=== PATIENT | female | born 1960 | race Caucasian/White ===

== ENCOUNTER 2016-09-12 17:10 | Emergency (ER) | payer OTHER, BC ==
[~2016-09-12] VITALS: Ht 162.6 cm; Wt 68.2 kg
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
--- NOTE | ~2016-09-12 | EKG ---
PATIENT: CHERRI SÁNCHEZ UNIT #: [id number] Ventricular Rate: 70 BPM Atrial Rate: 70 BPM P-R Interval: 148 ms QRS Duration: 76 ms Q-T Interval: 384 ms QTC Calculation(Bezet): 414 ms P [place]: 35 degrees Calculated T [place]: 25 degrees Diagnosis Line: Normal sinus rhythm Diagnosis Line: Normal ECG Diagnosis Line: When compared with ECG of 22-OCT-2013 12:47, Diagnosis Line: No significant change was found Diagnosis Line: Confirmed by ALECIA LYON MD ([id number]) on 09/14/2016 Diagnosis Line: 11:31:13 PM INTERPRETING MD: SONALI PENA
[~2016-09-12 17:10] MED LIST: B-COMPLEX-VITA1 EACH PO; CEROVITE SENIO1 EACH PO; CHANTIX PO; COLACE PO; FISH OIL 1,0001 CA2 PO; GLUCOSAMINE CH1 EAC5 PO; HYDROCODON-ACE1 EAC9 PO; KEFLEX PO; LEXAPRO20 MG PO; MULTI VITAMIN1 EACH PO; OSTEO BI-FLEX1 EAC1 PO; PANTOPRAZOLE SO20 MG PO; VICODIN 5/500 T1 TAB PO; VITAMIN B12-FO1 EACH PO; ZOLOFT50 MG PO
[2016-09-12 20:00] LABS: URINE SOURCE CLEAN CATCH
[2016-09-12 20:04] LABS: BASOPHIL% 0.3 % (0-2.5); DIFF IND NO; EOSINOPHIL% 0.3 % (0.0-7.0); HEMATOCRIT 37.7 % (35.0-45.0); HEMOGLOBIN 12.7 gm/dL (12.0-16.0); LYMPHOCYTE# 1.2 X10e3 (1.0-3.5); LYMPHOCYTE% 12.4 % (17.0-45.0); MEAN CELL VOLUME 84.7 FL (83-96); MEAN CORPUSCULAR HEMOGLOBIN 28.5 PG (28-34); MEAN CORPUSCULAR HGB CONC 33.6 g/dL (30-36); MEAN PLATELET VOLUME 7.5 FL (6.5-11.5); MONOCYTE# 0.5 X10e3 (0-1.0); MONOCYTE% 5.5 % (3.0-12.0); NEUTROPHIL# 7.7 X10e3 (1.5-7.1); NEUTROPHIL% 81.5 % (40-75); PLATELET COUNT 204 X10e3 (140-420); RED BLOOD COUNT 4.46 X10e (3.90-5.30); RED CELL DISTRIBUTION WIDTH 13.6 % (11.0-15.5); WHITE BLOOD COUNT 9.4 X10e3 (4.0-10.5)
[2016-09-12 20:06] LABS: URINE APPEARANCE CLEAR; URINE BILIRUBIN NEG (NEG); URINE BLOOD NEG (NEG); URINE COLOR YELLOW; URINE GLUCOSE NEG (NEG); URINE KETONE NEG (NEG); URINE LEUKOCYTE ESTERASE NEG (NEG); URINE NITRATE NEG (NEG); URINE PH 5.5 (5-8); URINE PROTEIN NEG (NEG); URINE SPECIFIC GRAVITY 1.007 (1.003-1.035); URINE UROBILINOGEN 0.2 MG/DL (NEG)
[2016-09-12 20:14] LABS: CULTURE INDICATED? NO
[2016-09-12 20:26] LABS: ALBUMIN SERUM 4.3 g/dL (3.5-5.0); ALKALINE PHOSPHATASE 57 U/L (32-92); ALT (SGPT) 23 U/L (10-40); AST (SGOT) 25 U/L (10-42); BILIRUBIN,TOTAL 0.5 mg/dL (0.2-2.0); BLOOD UREA NITROGEN 14 mg/dL (9-23); CALCIUM SERUM 9.1 mg/dL (8.4-10.2); CARBON DIOXIDE 25 mmol/L (22-31); CHLORIDE 104 mmol/L (100-111); CREATININE SERUM 0.8 mg/dL (0.6-1.4); GLOM FILT RATE Estimated 83.1 mL/min (>60); GLUCOSE FASTING 104 mg/dL (70-110); LIPASE 33 U/L (22-51); POTASSIUM 3.5 mmol/L (3.5-5.1); PROTEIN TOTAL SERUM 7.3 g/dL (6.0-8.3); SODIUM 137 mmol/L (135-145)
[2016-09-12 20:27] LABS: BILIRUBIN, DIRECT <0.1 mg/dL (0.0-0.2); BILIRUBIN,INDIRECT 0.4 mg/dL (0.0-0.9)
[2016-09-12 20:38] LABS: POC - CKMB 6.6 ng/mL (0.0-7.9); POC - TROPONIN <0.05 ng/mL (<=0.05)
== END 2016-09-12 21:40 | disposition short-term general hospital (02) ==
LOC: CED 17:10
PROVIDERS: Student in an Organized Health Care Education/Training Program
DX: S22.20XA Unspecified fracture of sternum, initial encounter for closed fracture (principal); Z79.899 Other long term (current) drug therapy; V43.52XA Car driver injured in collision with other type car in traffic accident, initial encounter; Y92.410 Unspecified street and highway as the place of occurrence of the external cause
CPT/HCPCS: 36415; 71250; 72125; 80048; 80076; 81003; 82553; 83690; 84484; 85025; 93005; 96360; 96361; 99284